=== PATIENT | female | born 1985 | race Caucasian/White ===

== ENCOUNTER 2017-05-25 14:40 | Emergency (ER) | payer MEDICAID ==
[~2017-05-25] VITALS: Ht 170.2 cm; Wt 118.1 kg
[2017-05-25 14:43] VITALS: BP 138/83
[2017-05-25] MEDS ORDERED: CLON0.1T PO (14:47)
[2017-05-25 17:07] LABS: BASOPHILS % (AUTO) 0.5 % (0.0-2.0); EOSINOPHILS % (AUTO) 0.8 % (1.0-6.0); HEMATOCRIT 37.8 % (36-46); HEMOGLOBIN 12.7 g/dL (12.0-16.0); LYMPHOCYTES # (AUTO) 2.5 K/uL (1.0-4.8); LYMPHOCYTES % (AUTO) 25.9 % (22.0-44.0); MEAN CORPUSCULAR HEMOGLOBIN 29.2 pg (26.0-34.0); MEAN CORPUSCULAR HGB CONC 33.5 G/dL (31.0-37.0); MEAN CORPUSCULAR VOLUME 87 fL (80-100); MONOCYTES # (AUTO) 0.6 K/uL (0.1-1.0); MONOCYTES % (AUTO) 5.6 % (2.0-9.0); NEUTROPHILS # (AUTO) 6.6 K/uL (1.8-7.7); NEUTROPHILS % (AUTO) 67.2 % (40.0-70.0); PLATELET COUNT (AUTO) 383 K/uL (150-450); RED BLOOD CELL COUNT(AUTO) 4.34 MIL/uL (4.00-5.20); RED CELL DISTRIBUTION WIDTH 14.5 % (11.5-14.5); WHITE BLOOD COUNT (AUTO) 9.8 K/uL (4.5-11.0)
[2017-05-25 17:20] LABS: ANION GAP 9 mmol/L (8-16); CARBON DIOXIDE 26 mmol/L (22-29); CHLORIDE 107 mmol/L (98-107); GLOMERULAR FILTR. RATE CALC > 60 mL/min (>60); POTASSIUM 3.7 mmol/L (3.5-5.1); SODIUM SERUM 142 mmol/L (136-145); UREA NITROGEN, BLOOD 7 mg/dL (7-18)
== END 2017-05-25 18:31 | disposition home or self-care (01) ==
LOC: EMS 14:44
DX: R60.0 Localized edema (principal); M54.12 Radiculopathy, cervical region; I10 Essential (primary) hypertension; F17.210 Nicotine dependence, cigarettes, uncomplicated; F10.20 Alcohol dependence, uncomplicated
CPT/HCPCS: 72040; 85379; 99285; 99406

== ENCOUNTER 2025-08-23 15:08 | Inpatient (IN) | payer MEDICAID, OTHER ==
[~2025-08-23] VITALS: Ht 170.2 cm; Wt 104.6 kg
[~2025-08-23 15:08] MED LIST: CLON0.1T PO
[2025-08-23] MEDS ORDERED: 0.9% SODIUM CHLORIDE 10 ML SYRINGE IVP ONE (15:43)
[2025-08-23] MEDS ORDERED: SODIUM CHLORIDE 0.9% 100 ML ONE (15:43)
[2025-08-23] MEDS ORDERED: IOHEXOL 350 MG/ML 100 ML VIAL ONE (15:43)
[2025-08-23 15:46] LABS: PLATELET COUNT (AUTO) 464 K/uL (150-450); RED BLOOD CELL COUNT(AUTO) 5.00 MIL/uL (4.00-5.20); RED CELL DISTRIBUTION WIDTH 17.5 % (11.5-14.5); WHITE BLOOD COUNT (AUTO) 6.9 K/uL (4.5-11.0)
[2025-08-23 16:02] LABS: CALCIUM, TOTAL 8.5 mg/dL (8.8-10.5); CREATININE 0.70 mg/dL (0.60-1.30); GLOMERULAR FILTR. RATE CALC > 60 mL/min (>60); GLUCOSE,RANDOM 96 mg/dL (70-110); SODIUM SERUM 139 mmol/L (136-145); UREA NITROGEN, BLOOD 14 mg/dL (7-18)
[2025-08-23 16:08] LABS: ASPARTATE AMINOTRANSFERASE 19 U/L (15-37); TOTAL PROTEIN, SERUM 7.8 g/dL (6.4-8.2)
[2025-08-23 16:09] LABS: CHOL/HDL RATIO 2.8 (3.9-5.7); LDL CHOL (CALC.) 74.0 mg/dL (0-130)
[2025-08-23 16:12] LABS: TROPONIN I-HIGH SENSITIVITY 8 ng/L (<51)
[2025-08-23 16:16] LABS: RBC MORPHOLOGY COMMENT ABNORMAL RBC MORPH
[2025-08-23 17:48] LABS: APPEARANCE,URINE HAZY (CLEAR); GLUCOSE, URINE (UA) NEGATIVE (NEGATIVE); LEUKOCYTE ESTERASE ,URINE LARGE (NEGATIVE); NITRATE,URINE NEGATIVE (NEGATIVE); OCCULT BLOOD,URINE SMALL (NEGATIVE); PH,URINE DRUG SCREEN 6.0 (5.0-8.0); SPECIFIC GRAVITIY, URINE 1.041 (1.003-1.030)
[2025-08-23 17:55] LABS: ALCOHOL, URINE DRUG SCREEN NEGATIVE (NEGATIVE); AMPHET/METH SCREEN,URINE NEGATIVE (NEGATIVE); BARBITURATE SCREEN, URINE NEGATIVE (NEGATIVE); CANNABINOID SCREEN,URINE NEGATIVE (NEGATIVE); COCAINE SCREEN,URINE NEGATIVE (NEGATIVE); METHADONE SCREEN, URINE NEGATIVE (NEGATIVE)
[2025-08-23] MEDS: MORPHINE SULFATE 4 MG/ML SYRINGE IVP ONE (18:09)
[2025-08-23] MEDS ORDERED: BISACODYL 10 MG RECTAL RECTAL SUPPOSITORY PR PRN (19:15)
[2025-08-23] MEDS ORDERED: ZOLPIDEM TARTRATE 5 MG TABLET PO PRN (19:15)
[2025-08-23] MEDS ORDERED: ACETAMINOPHEN 325 MG TABLET PO PRN (19:15)
[2025-08-23] MEDS ORDERED: MAGNESIUM HYDROXIDE SUSPENSION 30 ML UDCUP PO PRN (19:15)
[2025-08-23] MEDS ORDERED: ONDANSETRON HCL 4 MG/2 ML VIAL IVP PRN (19:15)
[2025-08-23] MEDS ORDERED: MORPHINE SULFATE 4 MG/ML SYRINGE IVP PRN (19:15)
[2025-08-23 20:24] VITALS: BP 127/74; PULSE 78; RESP 19; TEMP 98.2; O2SAT 96
[2025-08-23] MEDS ORDERED: ATORVASTATIN CALCIUM 20 MG TABLET PO SCH (21:00)
[2025-08-23] MEDS: DOCUSATE SODIUM 100 MG CAPSULE PO SCH (21:00)
[2025-08-23 21:48] LABS: TROPONIN I-HIGH SENSITIVITY 9 ng/L (<51)
[2025-08-23] MEDS: ATORVASTATIN CALCIUM 20 MG TABLET PO SCH (21:53)
[2025-08-23] MEDS: ASPIRIN 81 MG CHEWABLE TABLET PO ONE (21:54)
[2025-08-24] VITALS (7 sets, daily range): BP systolic 112–126; BP diastolic 61–82; PULSE 70–83; RESP 17–19; TEMP 98–98.6; O2SAT 96–100
[2025-08-24] MEDS: HEPARIN SODIUM,PORCINE 5,000 UNITS/ML VIAL SQ SCH (00:02)
[2025-08-24] MEDS ORDERED: SODIUM CHLORIDE 0.9% 500 ML IV ONE (02:41)
[2025-08-24] MEDS: CefTRIAXone 1 GM/DEXTROSE 50 ML IV SCH (02:48)
[2025-08-24 06:16] LABS: PLATELET COUNT (AUTO) 421 K/uL (150-450); RED BLOOD CELL COUNT(AUTO) 4.65 MIL/uL (4.00-5.20); RED CELL DISTRIBUTION WIDTH 17.1 % (11.5-14.5); WHITE BLOOD COUNT (AUTO) 5.6 K/uL (4.5-11.0)
[2025-08-24 06:19] LABS: CALCIUM, TOTAL 8.1 mg/dL (8.8-10.5); CREATININE 0.70 mg/dL (0.60-1.30); GLOMERULAR FILTR. RATE CALC > 60 mL/min (>60); GLUCOSE,RANDOM 95 mg/dL (70-110); SODIUM SERUM 138 mmol/L (136-145); UREA NITROGEN, BLOOD 12 mg/dL (7-18)
[2025-08-24 06:32] LABS: TROPONIN I-HIGH SENSITIVITY 12 ng/L (<51)
[2025-08-24 07:42] LABS: RBC MORPHOLOGY COMMENT ABNORMAL RBC MORPH
[2025-08-24] MEDS: PANTOPRAZOLE SODIUM 40 MG DR TABLET PO SCH (08:51)
[2025-08-24] MEDS: ASPIRIN 81 MG CHEWABLE TABLET PO SCH (08:51)
[2025-08-24 20:35] LABS: GLUCOMETER DEV NAME(LOC) 5N.2C; GLUCOSE,POINT OF CARE 164 MG/DL (70-110)
[2025-08-25 03:58] VITALS: BP 128/79; PULSE 77; RESP 18; TEMP 98.2; O2SAT 100
[2025-08-25 06:40] LABS: PLATELET COUNT (AUTO) 443 K/uL (150-450); RED BLOOD CELL COUNT(AUTO) 4.72 MIL/uL (4.00-5.20); RED CELL DISTRIBUTION WIDTH 17.1 % (11.5-14.5); WHITE BLOOD COUNT (AUTO) 7.2 K/uL (4.5-11.0)
[2025-08-25 06:57] LABS: CALCIUM, TOTAL 7.9 mg/dL (8.8-10.5); CREATININE 0.51 mg/dL (0.60-1.30); GLOMERULAR FILTR. RATE CALC > 60 mL/min (>60); GLUCOSE,RANDOM 111 mg/dL (70-110); SODIUM SERUM 138 mmol/L (136-145); UREA NITROGEN, BLOOD 15 mg/dL (7-18)
[2025-08-25 06:58] LABS: RBC MORPHOLOGY COMMENT ABNORMAL RBC MORPH
[2025-08-25 08:19] VITALS: BP 115/71; PULSE 70; RESP 16; TEMP 98.1; O2SAT 99
[2025-08-25 12:12] VITALS: BP 112/81; PULSE 72; RESP 16; TEMP 98.2; O2SAT 97
[2025-08-25 17:50] VITALS: BP 131/84; PULSE 69; RESP 17; TEMP 97.9; O2SAT 99
[2025-08-25 19:55] VITALS: BP 139/84; PULSE 78; RESP 18; TEMP 97.9; O2SAT 100
[2025-08-25 20:00] VITALS: BP 139/84; PULSE 78; RESP 18; TEMP 97.9; O2SAT 100
[2025-08-25] MEDS: GABAPENTIN 300 MG CAPSULE PO SCH (20:25)
[2025-08-26 00:25] VITALS: BP 133/79; PULSE 79; RESP 18; TEMP 98.1; O2SAT 100
[2025-08-26 05:32] VITALS: BP 134/82; PULSE 73; RESP 18; TEMP 98.1; O2SAT 96
[2025-08-26 07:36] LABS: PLATELET COUNT (AUTO) 470 K/uL (150-450); RED BLOOD CELL COUNT(AUTO) 4.64 MIL/uL (4.00-5.20); RED CELL DISTRIBUTION WIDTH 17.7 % (11.5-14.5); WHITE BLOOD COUNT (AUTO) 6.5 K/uL (4.5-11.0)
[2025-08-26 07:45] LABS: CALCIUM, TOTAL 8.4 mg/dL (8.8-10.5); CREATININE 0.59 mg/dL (0.60-1.30); GLOMERULAR FILTR. RATE CALC > 60 mL/min (>60); GLUCOSE,RANDOM 123 mg/dL (70-110); SODIUM SERUM 141 mmol/L (136-145); UREA NITROGEN, BLOOD 12 mg/dL (7-18)
[2025-08-26 08:48] VITALS: BP 138/82; PULSE 62; RESP 18; TEMP 97.9; O2SAT 100
[2025-08-26 08:51] LABS: RBC MORPHOLOGY COMMENT ABNORMAL RBC MORPH
[2025-08-26] MEDS: HYDROCODONE/ACETAMINOPHEN 5-325 MG TABLET PO PRN (19:55)
[2025-08-27 00:12] VITALS: BP 117/74; PULSE 84; RESP 18; TEMP 98.6; O2SAT 99
[2025-08-27 04:00] VITALS: BP 120/84; PULSE 72; RESP 19; TEMP 97.9; O2SAT 99
[2025-08-27 08:30] VITALS: BP 125/88; PULSE 77; RESP 18; TEMP 98.6; O2SAT 98
[2025-08-27 20:28] VITALS: BP 110/77; PULSE 77; RESP 16; TEMP 98.2; O2SAT 98
[2025-08-27] MEDS ORDERED: SODIUM CHLORIDE 0.9% 1,000 ML ONE (22:51)
[2025-08-28 00:44] VITALS: BP 106/66; PULSE 82; RESP 16; TEMP 98.2; O2SAT 97
[2025-08-28] MEDS ORDERED: SODIUM CHLORIDE 0.9% 500 ML IV ONE (03:10)
[2025-08-28 04:00] VITALS: BP 116/68; PULSE 64; RESP 18; TEMP 97.9; O2SAT 100
[2025-08-28 08:15] VITALS: BP 106/68; PULSE 85; RESP 18; TEMP 98.2; O2SAT 100
[2025-08-28 08:24] LABS: PLATELET COUNT (AUTO) 463 K/uL (150-450); RED BLOOD CELL COUNT(AUTO) 4.62 MIL/uL (4.00-5.20); RED CELL DISTRIBUTION WIDTH 18.5 % (11.5-14.5); WHITE BLOOD COUNT (AUTO) 5.9 K/uL (4.5-11.0)
[2025-08-28 08:31] LABS: CALCIUM, TOTAL 8.5 mg/dL (8.8-10.5); CREATININE 0.56 mg/dL (0.60-1.30); GLOMERULAR FILTR. RATE CALC > 60 mL/min (>60); GLUCOSE,RANDOM 102 mg/dL (70-110); SODIUM SERUM 140 mmol/L (136-145); UREA NITROGEN, BLOOD 13 mg/dL (7-18)
[2025-08-28 09:57] LABS: RBC MORPHOLOGY COMMENT ABNORMAL RBC MORPH
[2025-08-28] MEDS ORDERED: ASPI-1450 PO (13:59)
[2025-08-28] MEDS ORDERED: ATOR20TA PO (13:59)
[2025-08-28] MEDS ORDERED: CEPH-558 PO (14:00)
[2025-08-28] MEDS ORDERED: GABA-1181 PO (14:01)
== END 2025-08-28 17:22 | DRG 690 ==
LOC: EMS 15:08 → EDH 17:40 → 5N 19:38 → 6N 08-28 03:02
PROVIDERS: ADMIT Internal Medicine; ATTEND Internal Medicine
DX: N39.0 Urinary tract infection, site not specified (principal); I69.354 Hemiplegia and hemiparesis following cerebral infarction affecting left non-dominant side; G62.9 Polyneuropathy, unspecified; I10 Essential (primary) hypertension; E66.9 Obesity, unspecified; F17.200 Nicotine dependence, unspecified, uncomplicated; M54.12 Radiculopathy, cervical region; F10.20 Alcohol dependence, uncomplicated; M48.00 Spinal stenosis, site unspecified; Z68.36 Body mass index [BMI] 36.0-36.9, adult; Z79.82 Long term (current) use of aspirin; Z87.59 Personal history of other complications of pregnancy, childbirth and the puerperium
CPT/HCPCS: 70496; 70498; 70551; 71045; 72141; 80048; 80053; 80061; 80307; 81001; 82948; 82962; 83036; 84443; 84484; 84703; 85025; 85610; 85730; 86850; 86900; 86901; 92610; 93005; 93880; 97116; 97163; 97166; 97530; 99285; G0480; J0696; J1644; J2270; J7030; J7040; J7050; 36415-L1; 36415-TC; 70450; 70450-TC